=== PATIENT | female | born 1970 | race Caucasian/White ===

== ENCOUNTER 2023-11-12 11:24 | Emergency (ER) | payer OTHER ==
[~2023-11-12] VITALS: Ht 160 cm; Wt 100.7 kg
[2023-11-12 11:32] VITALS: BP 152/58; PULSE 105; RESP 19; TEMP 98.3; O2SAT 98
[2023-11-12] MEDS: NACL 0.9% 1,000 ML IV ONE (13:21)
[2023-11-12 13:40] LABS: BASOPHILS # (AUTO) 0.1 K/uL (0.00-0.22); BASOPHILS % (AUTO) 0.5 % (0.0-2.0); EOSINOPHILS # (AUTO) 0.3 K/uL (0-0.4); HEMATOCRIT 39.9 % (36-48); HEMOGLOBIN 13.5 g/dL (12.0-16.0); LYMPHOCYTES # (AUTO) 2.5 K/uL (2.5-16.5); LYMPHOCYTES % (AUTO) 19.8 % (20.5-51.1); MEAN CORPUSCULAR HEMOGLOBIN 29 pg (27-31); MEAN CORPUSCULAR HGB CONC 34 g/dL (33-37); MEAN CORPUSCULAR VOLUME 84.2 fL (80-94); MONOCYTES # (AUTO) 0.9 K/uL (0.8-1.0); MONOCYTES % (AUTO) 7.3 % (1.7-9.3); NEUTROPHILS # (AUTO) 8.9 K/uL (1.8-7.7); NEUTROPHILS % (AUTO) 70.4 % (42.2-75.2); PLATELET COUNT (AUTO) 326 K/uL (140-450); RED BLOOD CELL COUNT(AUTO) 4.74 MIL/uL (4.20-5.40); RED CELL DISTRIBUTION WIDTH 14.1 % (11.6-13.7); WHITE BLOOD COUNT (AUTO) 12.7 K/uL (4.8-10.8)
[2023-11-12 13:55] LABS: ALBUMIN 3.2 g/dL (3.4-5.0); ANION GAP 12.2 (8-16); CALCIUM 8.8 mg/dL (8.5-10.1); CARBON DIOXIDE 30.3 mmol/L (21-32); CREATININE 0.8 mg/dL (0.6-1.3); POTASSIUM 3.5 mmol/L (3.5-5.1); TOTAL BILIRUBIN 0.2 mg/dL (0.0-1.0)
[2023-11-12 14:59] VITALS: BP 152/58; PULSE 105; RESP 19; TEMP 98.3; O2SAT 98
== END 2023-11-12 15:00 | disposition home or self-care (01) ==
LOC: MED 11:24
DX: R53.83 Other fatigue (principal); Z77.098 Contact with and (suspected) exposure to other hazardous, chiefly nonmedicinal, chemicals; E11.9 Type 2 diabetes mellitus without complications; I10 Essential (primary) hypertension; Z79.4 Long term (current) use of insulin; Z79.899 Other long term (current) drug therapy
CPT/HCPCS: 36415; 71045; 80053; 85025; 93005; 96360; 99285; J7030